=== PATIENT | female | born 1955 | race African-American/Black ===

== ENCOUNTER 2020-10-30 17:12 | Inpatient (IN) | payer OTHER ==
[2020-10-30 18:29] VITALS: BMI 34.0
[2020-10-30 19:37] LABS: INR 1.12 (0.83-1.09); PROTHROMBIN TIME (PATIENT) 13.5 SEC (9.7-13.0)
[2020-10-30 19:40] LABS: ACTIVATED PTT 34.1 SECONDS (25.2-36.5)
[2020-10-30] MEDS ORDERED: METOPROLOL TARTRATE 25 MG TABLET (FP) PO ONE (19:42)
[2020-10-30] MEDS ORDERED: METOPROLOL TARTRATE 5 MG/5 ML VIAL IVPUSH ONE (19:42)
[2020-10-30] MEDS ORDERED: ASPIRIN 81 MG CHEWABLE TABLETS PO ONE (19:43)
[2020-10-30 19:45] LABS: CHLORIDE 104 mmol/L (98-107); SODIUM 139 mmol/L (136-145)
[2020-10-30 19:48] LABS: ALBUMIN 3.7 g/dl (3.4-5.0); ANION GAP 8 MMOL/L (8-16); BLOOD UREA NITROGEN 10.5 mg/dL (7-18); CALCIUM 8.5 mg/dL (8.5-10.1); CO2 27 mmol/L (21-32)
[2020-10-30] MEDS ORDERED: ASPIRIN 81 MG CHEWABLE TABLETS ONE (19:48)
[2020-10-30] MEDS ORDERED: METOPROLOL TARTRATE 25 MG TABLET (FP) ONE (19:48)
[2020-10-30 19:49] LABS: GLUCOSE,RANDOM 99 mg/dL (74-106)
[2020-10-30] MEDS ORDERED: METOPROLOL TARTRATE 5 MG/5 ML VIAL ONE (19:49)
[2020-10-30 19:51] LABS: SGPT/ALT 23 U/L (13-61)
[2020-10-30 19:52] LABS: SGOT/AST 35 U/L (15-37)
[2020-10-30 19:53] LABS: BILIRUBIN,TOTAL 0.7 mg/dL (0.2-1); TOT PROT 7.5 g/dl (6.4-8.2)
[2020-10-30 19:54] LABS: ALK PHOS 72 U/L (45-117)
[2020-10-30 19:57] LABS: N-TERMINAL BNP 58.8 pg/ml (5-125)
[2020-10-30 20:20] LABS: CREATININE 1.2 mg/dL (0.55-1.3)
[2020-10-30] MEDS ORDERED: SODIUM CHLORIDE 1,000 ML IV STA (21:08)
[2020-10-30] MEDS ORDERED: LIDOCAINE 5% TOPICAL PATCH TP ONE (21:09)
[2020-10-30 21:14] LABS: BASO % 0.3 % (0-2.0); EOS % 0.1 % (0-4.5); HEMATOCRIT 41.9 % (32.4-45.2); LYMPH % 21.7 % (8-40); MCH 30.2 pg (25.7-33.7); MCHC 33.5 g/dl (32.0-36.0); MEAN CELL VOLUME 90.1 fl (80-96); MEAN PLT VOLUME 9.4 fl (7.5-11.1); MONO % 9.9 % (3.8-10.2); PLATELET COUNT 187 K/MM3 (134-434); RBC 4.65 M/mm3 (3.60-5.2); RDW 14.4 % (11.6-15.6); WHITE BLOOD COUNT 4.4 K/mm3 (4.0-10.0)
[2020-10-30 21:15] LABS: ADD RBC MORPHOLOGY NO
[2020-10-30] MEDS ORDERED: LIDOCAINE 5% TOPICAL PATCH ONE (21:15)
[2020-10-30] MEDS ORDERED: LIDOCAINE PATCH REMOVAL MC SCH (22:00)
[2020-10-31] MEDS ORDERED: SODIUM CHLORIDE 500 ML IV STA ×2 (00:03→06:13)
[2020-10-31] MEDS ORDERED: METOPROLOL TARTRATE 5 MG/5 ML VIAL IVPUSH PRN (00:04)
[2020-10-31] MEDS ORDERED: ENOXAPARIN NA (PORCINE) 100 MG/1 ML DISP.SYRIN SQ SCH (00:30)
[2020-10-31] MEDS ORDERED: ENOXAPARIN NA (PORCINE) 100 MG/1 ML DISP.SYRIN SQ ONE (00:53)
[2020-10-31 01:15] LABS: MAGNESIUM 1.7 mg/dL (1.8-2.4)
[2020-10-31 01:19] LABS: CHOLESTEROL 150 mg/dL (50-200); PHOSPHOROUS 3.1 mg/dL (2.5-4.9)
[2020-10-31 01:20] LABS: LDL CHOLESTEROL (ONLY SJRH) 86 mg/dL (5-100); TRIGLYCERIDES 151 mg/dL (0-150)
[2020-10-31 01:22] LABS: HDL CHOLESTEROL 43 mg/dL (40-60)
[2020-10-31] MEDS ORDERED: ACETAMINOPHEN 325 MG TABLET (FP) PO PRN (02:03)
[2020-10-31] MEDS ORDERED: METOPROLOL TARTRATE 25 MG TABLET (FP) PO ONE (06:14)
[2020-10-31] MEDS ORDERED: METOPROLOL TARTRATE 25 MG TABLET (FP) ONE ×2 (06:18→09:14)
[2020-10-31] MEDS ORDERED: METOPROLOL TARTRATE 5 MG/5 ML VIAL IVPUSH ONE (06:37)
[2020-10-31] MEDS ORDERED: dilTIAZem HCL 50 MG/10 ML - 10 ML VIAL IVPUSH ONE (06:44)
[2020-10-31] MEDS ORDERED: dilTIAZem HCL 125 MG/25 ML - 25 ML VIAL ONE (06:45)
[2020-10-31] MEDS ORDERED: dilTIAZem HCL 30 MG TABLET PO ONE (06:56)
[2020-10-31] MEDS ORDERED: dilTIAZem HCL 30 MG TABLET ONE ×2 (07:06→12:36)
[2020-10-31] MEDS ORDERED: LIDOCAINE PATCH REMOVAL MC ONE (09:00)
[2020-10-31] MEDS ORDERED: ARIPiprazole 5 MG TABLET ONE (09:14)
[2020-10-31] MEDS ORDERED: APIXABAN 5 MG TABLET ONE (09:14)
[2020-10-31 09:36] LABS: BASO % 0.3 % (0-2.0); HEMATOCRIT 38.1 % (32.4-45.2); LYMPH % 40.7 % (8-40); MCH 30.4 pg (25.7-33.7); MEAN CELL VOLUME 89.2 fl (80-96); MEAN PLT VOLUME 8.8 fl (7.5-11.1); MONO % 13.1 % (3.8-10.2); NEUT % 45.9 % (42.8-82.8); PLATELET COUNT 161 K/MM3 (134-434); RBC 4.27 M/mm3 (3.60-5.2); WHITE BLOOD COUNT 3.2 K/mm3 (4.0-10.0)
[2020-10-31] MEDS ORDERED: METOPROLOL TARTRATE 25 MG TABLET (FP) PO SCH ×2 (10:00)
[2020-10-31] MEDS ORDERED: APIXABAN 5 MG TABLET PO SCH (10:00)
[2020-10-31] MEDS ORDERED: ARIPiprazole 10 MG TABLET PO SCH (10:00)
[2020-10-31 10:03] LABS: INR 1.23 (0.83-1.09)
[2020-10-31 10:05] LABS: ALBUMIN 3.2 g/dl (3.4-5.0); BLOOD UREA NITROGEN 9.6 mg/dL (7-18); CALCIUM 8.2 mg/dL (8.5-10.1); MAGNESIUM 1.9 mg/dL (1.8-2.4)
[2020-10-31 10:08] LABS: CREATININE 0.8 mg/dL (0.55-1.3)
[2020-10-31 10:10] LABS: BILIRUBIN,TOTAL 0.5 mg/dL (0.2-1); TOT PROT 6.5 g/dl (6.4-8.2)
[2020-10-31] MEDS ORDERED: POTASSIUM CHLORIDE TABS 20 MEQ TABLET.ER (FP) PO ONE (10:25)
[2020-10-31] MEDS ORDERED: dilTIAZem HCL 30 MG TABLET PO SCH (12:00)
[2020-10-31] MEDS ORDERED: ACETAMINOPHEN 325 MG TABLET (FP) ONE (13:37)
[2020-10-31 15:01] VITALS: BP 137/64; PULSE 65; TEMP 97.9
== END 2020-10-31 14:50 | disposition home or self-care (01) | DRG 308 ==
LOC: JER 17:12 → JERBED 22:16
PROVIDERS: ADMIT Hospitalist
DX: I48.92 Unspecified atrial flutter (principal); U07.1 COVID-19; I10 Essential (primary) hypertension; E78.5 Hyperlipidemia, unspecified; F32.9 Major depressive disorder, single episode, unspecified; E66.9 Obesity, unspecified; Z68.34 Body mass index [BMI] 34.0-34.9, adult; R53.83 Other fatigue; R55 Syncope and collapse; R00.0 Tachycardia, unspecified; I95.89 Other hypotension
CPT/HCPCS: 36415; 71046-TC-FY; 80053; 80061; 82550; 82553; 83036; 83721; 83735; 83880; 84100; 84443; 84484; 85025; 85610; 85730; 93005; 93010; 93306-TC; 99285-25; C9803; U0003

== ENCOUNTER 2021-12-29 04:57 | Day surgery (SDC) | payer OTHER ==
[2021-12-24 09:19] VITALS: BMI 34.3
[2021-12-29] MEDS ORDERED: MIDAZOLAM HCL 2 MG/2 ML SINGLE DOSE VIAL ONE (07:29)
[2021-12-29 08:32] VITALS: TEMP 97.2
[2021-12-29 09:10] VITALS: BP 120/70; PULSE 86
== END 2021-12-29 10:02 | disposition home or self-care (01) ==
LOC: JASU-ENDO 04:57
PROVIDERS: ATTEND Internal Medicine
PROC: 5A2204Z Restoration of Cardiac Rhythm, Single (ICD-10-PCS; principal; 2021-12-29 07:30)
DX: I48.92 Unspecified atrial flutter (principal)
CPT/HCPCS: 93005; 93010

== ENCOUNTER 2022-12-29 04:40 | Day surgery (SDC) | payer OTHER ==
[2022-12-25 14:36] VITALS: BMI 34.3
[2022-12-29 09:07] VITALS: TEMP 97.5
[2022-12-29 09:16] VITALS: PULSE 102
[2022-12-29 14:00] VITALS: BP 105/64; RESP 14
== END 2022-12-29 10:00 | disposition home or self-care (01) ==
LOC: JASU-ENDO 04:40
PROVIDERS: ATTEND Student in an Organized Health Care Education/Training Program
PROC: 0DBL8ZX Excision of Transverse Colon, Via Natural or Artificial Opening Endoscopic, Diagnostic (ICD-10-PCS; 2022-12-29)
PROC: 0DBL8ZX Excision of Transverse Colon, Via Natural or Artificial Opening Endoscopic, Diagnostic (ICD-10-PCS; principal; 2022-12-29 08:30)
DX: D12.3 Benign neoplasm of transverse colon (principal); K64.8 Other hemorrhoids; K62.89 Other specified diseases of anus and rectum; K57.10 Diverticulosis of small intestine without perforation or abscess without bleeding; I10 Essential (primary) hypertension
CPT/HCPCS: 88305-TC

== ENCOUNTER 2023-04-01 14:24 | Emergency (ER) | payer OTHER ==
[2023-04-01 14:29] VITALS: BMI 37.0
[2023-04-01] MEDS ORDERED: METOPROLOL TARTRATE 5 MG/5 ML VIAL IVPUSH ONE (15:04)
[2023-04-01] MEDS ORDERED: METOPROLOL TARTRATE 5 MG/5 ML VIAL ONE (15:21)
[2023-04-01 15:46] VITALS: RESP 18
[2023-04-01 15:50] LABS: BASO % 1.1 % (0-2.0); EOS % 1.8 % (0-4.5); HEMATOCRIT 36.2 % (32.4-45.2); HEMOGLOBIN 12.6 GM/dL (10.7-15.3); LYMPH % 15.6 % (8-40); MCH 30.8 pg (25.7-33.7); MCHC 34.8 g/dl (32.0-36.0); MEAN CELL VOLUME 88.7 fl (80-96); MEAN PLT VOLUME 9.2 fl (7.5-11.1); MONO % 13.1 % (3.8-10.2); NEUT % 68.4 % (42.8-82.8); PLATELET COUNT 238 10^3/uL (134-434); RBC 4.08 M/mm3 (3.60-5.2); WHITE BLOOD COUNT 6.3 K/mm3 (4.0-10.0)
[2023-04-01 15:56] LABS: INR 1.86 (0.83-1.09); PROTHROMBIN TIME (PATIENT) 21.5 SEC (9.7-13.0)
[2023-04-01 15:59] LABS: ACTIVATED PTT 45.2 SECONDS (25.2-36.5)
[2023-04-01] MEDS ORDERED: CHOLECALCIFEROL (VIT D3) 1,000 UNIT (25 MCG) TABLET PO SCH (16:00)
[2023-04-01 16:12] LABS: POTASSIUM 3.8 mmol/L (3.5-5.1)
[2023-04-01 16:13] LABS: ALBUMIN 3.7 g/dl (3.4-5.0)
[2023-04-01 16:17] LABS: CREATININE 1.3 mg/dL (0.55-1.3)
[2023-04-01 16:18] LABS: BILIRUBIN,TOTAL 0.8 mg/dL (0.2-1); TOT PROT 7.5 g/dl (6.4-8.2)
[2023-04-01 16:21] LABS: N-TERMINAL BNP 186.3 pg/ml (5-125)
[2023-04-01 16:30] LABS: ANISOCYTOSIS 1+; MACROCYTOSIS 0
[2023-04-01 19:32] VITALS: TEMP 98.7
[2023-04-01] MEDS ORDERED: ACETAMINOPHEN 1000 MG/100 ML BAG IVPB ONE (19:34)
[2023-04-01] MEDS ORDERED: guaiFENesin/D-M SUGAR-FREE/ACLHOL-FREE (200 MG/10 MG) 5 ML PO ONE (19:37)
[2023-04-01] MEDS ORDERED: ACETAMINOPHEN INJECTION 100 ML IVPB ONE (19:38)
[2023-04-01] MEDS ORDERED: guaiFENesin/D-METHORPHAN HB 10 ML UNIT-DOSE CUPS ONE (19:38)
[2023-04-01 20:23] VITALS: BP 143/88; PULSE 71
[2023-04-01] MEDS ORDERED: AMOX TR/POT CLAV 875MG/125MG TABLETS (FP) PO ONE (20:30)
[2023-04-01] MEDS ORDERED: AMOX TR/POT CLAV 875MG/125MG TABLETS (FP) ONE (20:55)
[2023-04-01] MEDS ORDERED: APIXABAN 5 MG TABLET PO SCH (22:00)
[2023-04-02] MEDS ORDERED: ARIPiprazole 10 MG TABLET PO SCH (10:00)
[2023-04-02] MEDS ORDERED: AMIODARONE HCL 200 MG TABLET PO SCH (10:00)
[2023-04-02] MEDS ORDERED: amLODIPine BESYLATE 5 MG TABLET (FP) PO SCH (10:00)
[2023-04-02] MEDS ORDERED: metoPROLOL SUCCINATE 25 MG TAB.SR.24H (FP) PO SCH (10:00)
== END 2023-04-01 21:07 | disposition home or self-care (01) ==
LOC: JER 14:24
PROC: 3E0333Z Introduction of Anti-inflammatory into Peripheral Vein, Percutaneous Approach (ICD-10-PCS; principal; 2023-04-01)
DX: J18.8 Other pneumonia, unspecified organism (principal); R05.1 Acute cough
CPT/HCPCS: 0241U-QW; 36415; 71045-TC-FY; 71275-TC; 80053; 83880; 84484; 85025; 85610; 85730; 93005; 93010; 96374; 99285-25; Q9967